=== PATIENT | male | born 1990 | race Caucasian/White ===

== ENCOUNTER 2020-03-06 00:39 | Emergency (ER) | payer MEDICAID ==
[~2020-03-06] VITALS: Ht 175.3 cm; Wt 98.7 kg
[2020-03-06 00:46] VITALS: BP 103/64
[2020-03-06] MEDS ORDERED: TETanus/Pertussis (Acell)/Diphther VAC/PF (Tdap-Adult) 0.5ml syringe IMVAC ONE (00:55)
[2020-03-06] MEDS ORDERED: LIDOcaine 1% W/epiNEPHrine 1:200,000 10ml vial IJ ONE (00:55)
[2020-03-06] MEDS ORDERED: CEPH-572 PO (01:25)
[2020-03-06] MEDS ORDERED: bacitracin 15gm ointment TP ONE (01:40)
== END 2020-03-06 02:07 | disposition home or self-care (01) ==
LOC: ER 00:39
DX: S61.210A Laceration without foreign body of right index finger without damage to nail, initial encounter (principal); G89.29 Other chronic pain; F11.90 Opioid use, unspecified, uncomplicated; Z79.899 Other long term (current) drug therapy; W26.0XXA Contact with knife, initial encounter; Y93.89 Activity, other specified; Y92.89 Other specified places as the place of occurrence of the external cause; Y99.8 Other external cause status
CPT/HCPCS: 12001; 90471; 90715; 99283

== ENCOUNTER 2020-09-21 10:31 | Emergency (ER) | payer MEDICAID ==
[~2020-09-21] VITALS: Ht 172.7 cm; Wt 92.3 kg
[2020-09-21 10:49] VITALS: BP 119/80
[2020-09-21] MEDS ORDERED: AMOX-117 PO (11:44)
[2020-09-21] MEDS ORDERED: ACET-1015 PO (11:44)
[2020-09-21] MEDS ORDERED: IBUP-1984 PO (11:44)
== END 2020-09-21 12:00 | disposition home or self-care (01) ==
LOC: ER 10:32
DX: K08.89 Other specified disorders of teeth and supporting structures (principal); F17.210 Nicotine dependence, cigarettes, uncomplicated; G89.29 Other chronic pain; Z79.899 Other long term (current) drug therapy
CPT/HCPCS: 99283

== ENCOUNTER 2023-07-25 06:35 | Emergency (ER) | payer MEDICAID ==
[~2023-07-25] VITALS: Ht 175.3 cm; Wt 87.9 kg
[2023-07-25 06:39] VITALS: BP 115/64; PULSE 86; RESP 18; TEMP 98; O2SAT 99
[2023-07-25] MEDS ORDERED: SULF1TAB49 PO (08:16)
[2023-07-25] MEDS ORDERED: CEPH-585 PO (08:16)
== END 2023-07-25 08:30 | disposition home or self-care (01) ==
LOC: ER 06:35
DX: L03.115 Cellulitis of right lower limb (principal); G89.29 Other chronic pain; M54.9 Dorsalgia, unspecified
CPT/HCPCS: 99283